=== PATIENT | female | born 1930 | race Caucasian/White ===

== ENCOUNTER → 2016-11-08 | Outpatient (CLI) | payer OTHER, MEDICARE | LOC: MMPC 09:00 | DX: R60.9 Edema, unspecified (principal); E53.8 Deficiency of other specified B group vitamins; M81.0 Age-related osteoporosis without current pathological fracture; G89.29 Other chronic pain; Z86.718 Personal history of other venous thrombosis and embolism; Z79.01 Long term (current) use of anticoagulants | CPT/HCPCS: 99213; G0463 ==

== ENCOUNTER → 2016-11-30 | Outpatient (CLI) | payer OTHER, MEDICARE ==
--- NOTE | 2016-11-30 15:03 | EKG ---
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
[2016-11-30 16:43] LABS: BASOPHILS # (AUTO) 0.04 10*3/UL; BASOPHILS % (AUTO) 0.8 % (0-1); EOSINOPHILS # (AUTO) 0.09 10*3/UL; EOSINOPHILS % (AUTO) 1.7 % (0-8); HEMATOCRIT 41.4 % (37.0-47.0); HEMOGLOBIN 13.2 g/dL (12.0-16.0); LYMPHOCYTES # (AUTO) 1.86 10*3/uL; MEAN CORPUSCULAR HEMOGLOBIN 30.8 PG (27-31); MEAN CORPUSCULAR HGB CONC 31.9 g/dL (33-37); MEAN CORPUSCULAR VOLUME 96.7 FL (81-99); MEAN PLATELET VOLUME 10.5 FL (7.4-12.2); MONOCYTES # (AUTO) 0.39 10*3/UL (0.3-0.8); MONOCYTES % (AUTO) 7.5 % (5-15); NEUTROPHILS # (AUTO) 2.79 10*3/UL; NEUTROPHILS % (AUTO) 53.9 % (50-80); RED BLOOD COUNT 4.28 10^6/uL (4.20-5.40)
[2016-11-30 16:45] LABS: PLATELET MORPHOLOGY COMMENT NORMAL MORPHOLOGY (NORM); RBC MORPHOLOGY COMMENT NORMAL MORPHOLOGY (NORM); WBC MORPHOLOGY COMMENT NORMAL MORPHOLOGY (NORM)
[2016-11-30 16:49] LABS: BILIRUBIN,URINE NEGATIVE (NEG); COLOR,URINE YELLOW; GLUCOSE, URINE (UA) NEGATIVE (NEG); NITRATE,URINE NEGATIVE (NEG); OCCULT BLOOD,URINE NEGATIVE (NEG); PH,URINE 5.5 (5.0-8.5); PROTEIN,URINE NEGATIVE (NEG); UROBILINOGEN,URINE 0.2 mg/dL (0.2)
[2016-11-30 16:55] LABS: CLARITY,URINE CLEAR (CLEAR)
[2016-11-30 16:56] LABS: RBC,URINE 0 /hpf; SQUAMOUS EPITHELIAL CELL,UR RARE; WBC,URINE 0
[2016-11-30 17:00] LABS: BUN/CREATININE RATIO 36.25 (6-20); CALCIUM 9.1 mg/dL (8.7-10.7)
[2016-11-30 17:14] LABS: URINE SAMPLE TYPE VOID
--- NOTE | 2016-12-01 11:37 | DI ---
PA /LATERAL CHEST X-RAY, 11/30/2016 2:56 PM : Clinical History: Preoperative clearance. Previous Exam: 06/29/2006. Since the previous exam, a nerve stimulating device been inserted over the midthoracic spine. There i s an old compression fracture of L1 that is unchanged from the prior exam. The patient did have a com pression fracture of T12 that showed loss of height of approximately 50% on the prior exam, but on th e current study the height is less than 25%. There is osteoporosis. There is cardiomegaly without CHF . The left ventricular contour is quite prominent in this patient may have underlying aortic valvular disease, hypertension, or possibly even an old myocardial infarction. Lungs are clear. Mediastinal s tructures are normal. There are no pulmonary nodules. Readin. There is no acute infiltrate or effusion. 2. Cardiomegaly without CHF. There is marked prominence of the left ventricular contour suggesting e ither underlying aortic valvular disease or hypertension or possibly even an old myocardial infarctio n. 3. Severe osteoporosis.
== END ==
LOC: MOB LAB 14:56
DX: D50.9 Iron deficiency anemia, unspecified (principal); E53.8 Deficiency of other specified B group vitamins; M81.0 Age-related osteoporosis without current pathological fracture; G89.29 Other chronic pain; I45.2 Bifascicular block; I51.7 Cardiomegaly; Z86.718 Personal history of other venous thrombosis and embolism
CPT/HCPCS: 36415; 71020; 80048; 81001; 85025; 85610; 85730; 93005; 93010; 99213; G0463; J3420

== ENCOUNTER → 2016-12-27 | Outpatient (CLI) | payer OTHER, MEDICARE | LOC: MMPC 11:11 | DX: I83.218 Varicose veins of right lower extremity with both ulcer of other part of lower extremity and inflammation (principal); G89.29 Other chronic pain; E53.8 Deficiency of other specified B group vitamins; M81.0 Age-related osteoporosis without current pathological fracture; M17.11 Unilateral primary osteoarthritis, right knee; Z86.718 Personal history of other venous thrombosis and embolism; Z79.01 Long term (current) use of anticoagulants | CPT/HCPCS: 99212; G0463 ==

== ENCOUNTER → 2017-01-10 | Outpatient (CLI) | payer OTHER, MEDICARE | LOC: MMPC 11:11 | DX: I83.11 Varicose veins of right lower extremity with inflammation (principal); E61.1 Iron deficiency; E53.8 Deficiency of other specified B group vitamins; Z86.718 Personal history of other venous thrombosis and embolism; Z79.01 Long term (current) use of anticoagulants; M81.0 Age-related osteoporosis without current pathological fracture; G89.29 Other chronic pain; R60.9 Edema, unspecified | CPT/HCPCS: 99213; G0463 ==

== ENCOUNTER → 2017-01-26 | Outpatient (CLI) | payer OTHER, MEDICARE | LOC: MMPC 11:11 | DX: E53.8 Deficiency of other specified B group vitamins (principal); M81.0 Age-related osteoporosis without current pathological fracture; R60.9 Edema, unspecified; Z86.718 Personal history of other venous thrombosis and embolism; Z79.01 Long term (current) use of anticoagulants | CPT/HCPCS: 99213; G0463 ==

== ENCOUNTER → 2017-02-22 | Outpatient (CLI) | payer OTHER, MEDICARE ==
[2017-02-22 17:24] LABS: CHOL/HDL RATIO 2.71 RATIO (0-4.0); LDL CHOLESTEROL,CALCULATED 103.8 mg/dL
== END ==
LOC: MOB LAB 15:50
DX: I83.018 Varicose veins of right lower extremity with ulcer other part of lower leg (principal); E55.9 Vitamin D deficiency, unspecified; M17.11 Unilateral primary osteoarthritis, right knee; M81.0 Age-related osteoporosis without current pathological fracture; E53.8 Deficiency of other specified B group vitamins; R60.9 Edema, unspecified; Z86.718 Personal history of other venous thrombosis and embolism; Z86.2 Personal history of diseases of the blood and blood-forming organs and certain disorders involving the immune mechanism
CPT/HCPCS: 80061; 82306